=== PATIENT | male | born 1975 | race Caucasian/White ===

== ENCOUNTER 2017-07-19 21:25 | Emergency (ER) | payer OTHER ==
[~2017-07-19] VITALS: Ht 170.2 cm; Wt 93.1 kg
[2017-07-19 22:13] LABS: CHLORIDE 106 mEq/L (99-109); SODIUM 142 mEq/L (136-147)
[2017-07-19 22:15] LABS: GLUCOSE 105 mg/dL (70-99)
[2017-07-19 22:19] LABS: GFR ESTIMATE (CALCULATED) > 59 mL/min/ (58.99-99999); MCH 29.7 PG (29.0-34.0); MCV 87.2 FL (86-99); PLATELET COUNT 233 K/uL (156-360); RBC DIS.WIDTH-CV 12.7 % (11.8-14.6); RBC DIS.WIDTH-SD 40.2 % (39-53); RED BLOOD COUNT 5.39 M/uL (4.00-5.50); WHITE BLOOD COUNT 15.4 K/uL (4.1-10.2)
[2017-07-19 22:20] LABS: UREA NITROGEN (BUN) 19 mg/dL (9-23)
[2017-07-19 22:26] LABS: TROP-I INTERPRETATION NEGATIVE; TROPONIN-I < 0.01 ng/mL (0.0-0.30)
[2017-07-19 22:35] LABS: ALBUMIN 4.6 g/dL (3.2-4.8)
[2017-07-19 22:38] LABS: TOTAL PROTEIN 7.9 g/dL (6.4-8.3)
[2017-07-19 22:40] LABS: TOTAL BILIRUBIN 0.6 mg/dL (0.0-1.0)
[2017-07-19 22:41] LABS: ALKALINE PHOSPHATASE 71 IU/L (3-129)
[2017-07-19 22:43] LABS: AST (GOT) 20 IU/L (2-34); DIRECT BILIRUBIN 0.2 mg/dL (0.0-0.3)
[2017-07-19 22:44] LABS: ALT (GPT) 52 IU/L (3-49); LIPASE 22 U/L (1.0-51.0)
[2017-07-20 01:30] LABS: TROP-I INTERPRETATION NEGATIVE; TROPONIN-I < 0.01 ng/mL (0.0-0.30)
[2017-07-20] MEDS ORDERED: ZOFRAN4 MG PO (02:02)
[2017-07-20 02:31] VITALS: BP 126/85
== END 2017-07-20 02:32 | disposition home or self-care (01) ==
LOC: EME 21:25
PROVIDERS: Emergency Medicine
DX: A08.4 Viral intestinal infection, unspecified (principal); R07.9 Chest pain, unspecified; E03.9 Hypothyroidism, unspecified; E78.5 Hyperlipidemia, unspecified
CPT/HCPCS: 71046; 80048; 80076; 83690; 84484; 85027; 93005; 99281; 99285